=== PATIENT | female | born 1980 | race Caucasian/White ===

== ENCOUNTER 2018-06-19 14:31 | Outpatient (REF) | payer OTHER, SELFPAY ==
[2018-06-19 15:00] LABS: Anion Gap 12.6 mmol/L (3-11); BUN 19 mg/dL (7-18); CO2 23.4 mmol/L (21.0-32.0); CREATININE 1.19 mg/dL (0.55-1.02); Calcium 9.4 mg/dL (8.5-10.1); Chloride 96 mmol/L (98-107); Estimated GFR 50.76 (mL/min/1.73m2); Glucose 417 mg/dL (70-100); Potassium 4.5 mmol/L (3.5-5.1); Sodium 132 mmol/L (136-145); TSH (W/Ref FT4) 1.83 uIU/mL (0.358-3.74); Vitamin B12 624 pg/mL (193-986)
== END 2018-06-19 14:51 ==
LOC: NCHCN 14:31
PROVIDERS: Nurse Practitioner Family; PCP General Practice; Visit Provider Nurse Practitioner Family
DX: E11.65 Type 2 diabetes mellitus with hyperglycemia (principal); F41.8 Other specified anxiety disorders; F43.10 Post-traumatic stress disorder, unspecified; F15.20 Other stimulant dependence, uncomplicated; G47.20 Circadian rhythm sleep disorder, unspecified type; Z62.811 Personal history of psychological abuse in childhood; E66.9 Obesity, unspecified
CPT/HCPCS: 80048; 82607; 84443

== ENCOUNTER 2018-09-26 11:37 | Day surgery (SDC) | payer OTHER, SELFPAY ==
[2018-09-26] VITALS (11 sets, daily range): BP systolic 94–137; BP diastolic 44–77; PULSE 70–95; RESP 10–18; TEMP 36.6–37.3; O2SAT 92–95
--- NOTE | 2018-09-26 11:50 | W.ED.GENAD ---
Discharge Plan Disposition Patient Disposition: [facility] INPATIENT Condition: Fair Discharge Details Chief Complaint: Cellulitis Clinical Impression: Hidradenitis suppurativa, Abscess of left axilla Attending Provider: Luda Long Primary Care Provider: Chica Morris ED Provider: Karis Gold Discharge Data Discharge Date/Time-TO BE ENTERED AT DEPARTURE: 09/26/18 13:52 Medical Decision Making Patient is a 37-year-old female presents today with chief complaint of s left axillary pain. She reports that for the past 2 weeks she has had swelling. States that she has had multiple abscesses in her bilateral axilla historically. However, typically she is able to manage his at home and she reports that this at this point is continued to grow in size. She denies any fevers but states that she has had occasional chills. Does not exhibit signs of systemic illness. Patient is diabetic and reports that her glucose has been running high recently. States that she has been in the low to high 200s consistently. Attributes this to not exercising as much recently. On exam, she has a large, loculated abscess. I did visualize this with ultrasound as well. She has separate areas on the skin of erythema. In total, I am estimating the size for approximately 11 cm x 15 cm. Will consult with general surgery Consulted with Dr. Long who evaluated the patient. She advised that surgical intervention is appropriate. Labs ordered, beginning hydration. She has been NPO. WBC 19. Glucose 258. Patietn transported to OR. IV abx as ordered by Dr. Long. HPI General Mode of arrival: ambulatory. Date/Time Provider Initiated Documentation: 09/26/18 11:49. Limitations to Documentation: no limitations. Information obtained by: patient and RN notes reviewed. History of Present Illness 37 year old F presents to the emergency department with the chief complaint of pain/swelling left axilla, described as mild, with intensity rated at 2. Quality is described as aching, and is localized to the left and upper extremity. Patient reports no radiation. Patient started experiencing this week(s) (2) and it has been constant (progressively worsneing). No relieving factors improve symptom(s), No exacerbating factors reported . Patient notes no other symptoms.. Patient did receive the following treatments prior to arrival, none Related Data Home Medications Medication Instructions Recorded Confirmed insulin glargine [Lantus Solostar 20 unit SUBCUT DAILY 09/26/18 09/26/18 U-100 Insulin] lamotrigine 100 mg PO DAILY 09/26/18 09/26/18 levomefolate-algal oil [Deplin 1 cap PO DAILY 09/26/18 09/26/18 (algal oil)] losartan 12.5 mg PO DAILY 09/26/18 09/26/18 vilazodone [Viibryd] 40 mg PO DAILY 09/26/18 09/26/18 Allergies Allergy/AdvReac Type Severity Reaction Status Date / Time No Known Allergies Allergy Verified 09/26/18 14:00 General Stated Complaint: Cellulitis THERON: 4 Review of Systems Constitutional Reports as per HPI, Denies chills and Denies fever(s) Musculoskeletal Reports as per HPI Integumentary/Breasts Reports as per HPI Neurologic Reports as per HPI, Denies sensory deficit and Denies paresthesias PFSH Medical History [place] teeth extracted (Acute) Depression (Chronic) Diabetes (Chronic) Surgical History History of surgical removal of pilonidal cyst (Acute) Social History Smoking/Tobacco Use Status: Current every day Tobacco Type: cigarettes Alcohol Intake: current Alcohol Intake frequency: holidays/special occasions only Alcohol type: beer Substance use type: does not use Do you feel safe at home: Yes Do you feel safe in your relationship?: Yes Exam Const General: cooperative, healthy appearing, comfortable, no acute distress and well developed Nutritional Appearance: average body habitus and well nourished Orientation: alert and awake Resp Effort & Inspection: normal respiratory effort, able to speak in complete sentences and no respiratory distress Cardio Rate: regular rate Rhythm: regular rhythm Skin General skin exam: erythema, fluctuance and induration Neuro General: alert and awake Cognition: normal cognition Speech: speech normal Gait: normal gait Sensory Exam: no sensory deficits noted Extrem Right upper extremity: full ROM and normal capillary refill; abnormal to inspection (axillary exam concerning for above) Psych Appearance: grossly normal and well kempt Mental Status: mental status grossly normal Speech and Movement: speech and movement normal Course Vital Signs Temperature 36.8 C 09/26/18 11:41 Pulse 94 H 09/26/18 11:41 Respiratory Rate 16 09/26/18 11:41 Blood Pressure 137/77 09/26/18 11:41 Pulse Oximetry 95 09/26/18 11:41 Temperature 36.8 C 09/26/18 11:41 Temperature Source Skin 09/26/18 11:41 Pulse 94 H 09/26/18 11:41 Respiratory Rate 16 09/26/18 11:41 Blood Pressure 137/77 09/26/18 11:41 Blood Pressure Position Sitting 09/26/18 11:41 Pulse Oximetry 95 09/26/18 11:41 Oxygen Delivery Method Room Air 09/26/18 11:41 Oxygen Flow Rate 0 09/26/18 11:41
--- NOTE | 2018-09-26 12:03 | ED.GENADUL_ITS ---
Discharge Plan Disposition Patient Disposition: [facility] INPATIENT Condition: Fair Discharge Details Chief Complaint: Cellulitis Clinical Impression: Hidradenitis suppurativa, Abscess of left axilla Attending Provider: Luda Long Primary Care Provider: Chica Morris ED Provider: Karis Gold Discharge Data Discharge Date/Time-TO BE ENTERED AT DEPARTURE: 09/26/18 13:52 Medical Decision Making Patient is a 37-year-old female presents today with chief complaint of s left axillary pain. She reports that for the past 2 weeks she has had swelling. States that she has had multiple abscesses in her bilateral axilla historically. However, typically she is able to manage his at home and she reports that this at this point is continued to grow in size. She denies any fevers but states that she has had occasional chills. Does not exhibit signs of systemic illness. Patient is diabetic and reports that her glucose has been running high recently. States that she has been in the low to high 200s consistently. Attributes this to not exercising as much recently. On exam, she has a large, loculated abscess. I did visualize this with ultrasound as well. She has separate areas on the skin of erythema. In total, I am estimating the size for approximately 11 cm x 15 cm. Will consult with general surgery Consulted with Dr. Long who evaluated the patient. She advised that surgical intervention is appropriate. Labs ordered, beginning hydration. She has been NPO. WBC 19. Glucose 258. Patietn transported to OR. IV abx as ordered by Dr. Long. HPI General Mode of arrival: ambulatory . Date/Time Provider Initiated Documentation: 09/26/18 11:49 . Limitations to Documentation: no limitations . Information obtained by: patient and RN notes reviewed . History of Present Illness 37 year old F presents to the emergency department with the chief complaint of pain/swelling left axilla, described as mild, with intensity rated at 2. Quality is described as aching, and is localized to the left and upper extremity. Patient reports no radiation. Patient started experiencing this week(s) (2) and it has been constant (progressively worsneing). No relieving factors improve symptom(s), No exacerbating factors reported . Patient notes no other symptoms.. Patient did receive the following treatments prior to arrival, none Related Data Home Medications Medication Instructions Recorded Confirmed insulin glargine [Lantus Solostar 20 unit SUBCUT DAILY 09/26/18 09/26/18 U-100 Insulin] lamotrigine 100 mg PO DAILY 09/26/18 09/26/18 levomefolate-algal oil [Deplin 1 cap PO DAILY 09/26/18 09/26/18 (algal oil)] losartan 12.5 mg PO DAILY 09/26/18 09/26/18 vilazodone [Viibryd] 40 mg PO DAILY 09/26/18 09/26/18 Allergies Allergy/AdvReac Type Severity Reaction Status Date / Time No Known Allergies Allergy Verified 09/26/18 14:00 General Stated Complaint: Cellulitis THERON: 4 Review of Systems Constitutional Reports as per HPI, Denies chills and Denies fever(s) Musculoskeletal Reports as per HPI Integumentary/Breasts Reports as per HPI Neurologic Reports as per HPI, Denies sensory deficit and Denies paresthesias PFSH Medical History [place] teeth extracted (Acute) Depression (Chronic) Diabetes (Chronic) Surgical History History of surgical removal of pilonidal cyst (Acute) Social History Smoking/Tobacco Use Status: Current every day Tobacco Type: cigarettes Alcohol Intake: current Alcohol Intake frequency: holidays/special occasions only Alcohol type: beer Substance use type: does not use Do you feel safe at home: Yes Do you feel safe in your relationship?: Yes Exam Const General: cooperative, healthy appearing, comfortable, no acute distress and well developed Nutritional Appearance: average body habitus and well nourished Orientation: alert and awake Resp Effort & Inspection: normal respiratory effort, able to speak in complete sentences and no respiratory distress Cardio Rate: regular rate Rhythm: regular rhythm Skin General skin exam: erythema, fluctuance and induration Neuro General: alert and awake Cognition: normal cognition Speech: speech normal Gait: normal gait Sensory Exam: no sensory deficits noted Extrem Right upper extremity: full ROM and normal capillary refill; abnormal to inspection (axillary exam concerning for above) Psych Appearance: grossly normal and well kempt Mental Status: mental status grossly normal Speech and Movement: speech and movement normal Course Vital Signs Temperature 36.8 C 09/26/18 11:41 Pulse 94 H 09/26/18 11:41 Respiratory Rate 16 09/26/18 11:41 Blood Pressure 137/77 09/26/18 11:41 Pulse Oximetry 95 09/26/18 11:41 Temperature 36.8 C 09/26/18 11:41 Temperature Source Skin 09/26/18 11:41 Pulse 94 H 09/26/18 11:41 Respiratory Rate 16 09/26/18 11:41 Blood Pressure 137/77 09/26/18 11:41 Blood Pressure Position Sitting 09/26/18 11:41 Pulse Oximetry 95 09/26/18 11:41 Oxygen Delivery Method Room Air 09/26/18 11:41 Oxygen Flow Rate 0 09/26/18 11:41
--- NOTE | 2018-09-26 12:47 | W.PM.HP.N ---
Date of service: 09/26/18 Time of Service: 12:47 Assessment and Plan (1) Hidradenitis suppurativa: Current visit: Yes Status: Acute 37 y/o female with h/o hidradenitis suppuritiva. Discussed with her re: skin hygiene - keeping the skin as dry and clean as possible. Discussed with her re: being careful with shavinig to avoid nicks or scrapes to the skin. Consider follow-up with dermatology once the acute infection clears to see if there are other treatment recommendations. (2) Abscess of left axilla: Current visit: Yes Status: Acute 37 y/o female diabetic smoker with multiple, loculated left axillary abscesses. Discussed with patient recommendation to proceed with incision and drainage in the operating room under anesthesia to allow for adequate drainage of loculated pockets. Discussed operative procedure with risks, benefits, and alternatives including but not limited to risks with anesthesia sedation/general anesthesia, bleeding, recurrent infection, scarring, and possible additional procedures. Discussed possible Sharla drain placement and possible multiple incisions for drainage. Discussed that surgery will proceed when cleared with anesthesia as patient just ate an omelet at 1000 this am and will need to be adequately NPO for anesthesia. Clindamycin IV ordered. Will plan discharge on po Clindamycin as well. Labs pending. Plan discharge this evening after surgery. All questions answered. Patient appeared to understand and agree with the discussion as outlined above. She wishes to proceed. Discussed with ADRI Beltran in the ED. See orders. History of Present Illness Chief Complaint: Left axillary abscesses Narrative: 37 y/o female seen with family at the bedside in the ED at [facility]. Patient has a long history of hidradenitis suppuritiva x 20 years, since her late teens. She notes intermittent abscesses in the axillae, under the breasts, and in the groin which have either drained spontaneously or been drained by the patient herself. She also has a history of a pilonidal cyst for which she underwent excision with Dr. Brooke in the past. She notes that her left axilla started to become red, swollen, and painful over the past 2 weeks. It has not drained spontaneously. Bedside ultrasound performed by the ED staff reportedly showed large, loculated abscesses. She has never had a formal surgical drainage. She denies any drug allergies. She is an insulin-dependent diabetic and pack-a-day smoker. She denied fevers at home, but had reported ocassional chills to the ED staff. She also reported that her blood sugars had been running high. Review of Systems Constitutional Reports system reviewed and no additional complaints, except as docu, Reports chills and Denies fever(s) Integumentary/Breasts Reports erythema (left axilla), Reports skin pain (left axilla) and Reports skin swelling (left axilla) [facility] Medical History Depression (Chronic) Diabetes (Chronic) Social History Smoking/Tobacco Use Status: Current every day Alcohol Intake: current Alcohol Intake frequency: holidays/special occasions only Substance use type: does not use Do you feel safe at home: Yes Do you feel safe in your relationship?: Yes Meds Home Medications Medication Instructions Recorded Confirmed Type insulin glargine [Lantus Solostar 20 unit SUBCUT DAILY 09/26/18 09/26/18 History U-100 Insulin] lamotrigine 100 mg PO DAILY 09/26/18 09/26/18 History levomefolate-algal oil [Deplin 1 cap PO DAILY 09/26/18 09/26/18 History (algal oil)] losartan 12.5 mg PO DAILY 09/26/18 09/26/18 History vilazodone [Viibryd] 40 mg PO DAILY 09/26/18 09/26/18 History Allergies Allergy/AdvReac Type Severity Reaction Status Date / Time No Known Allergies Allergy Unverified 05/29/16 16:19 Exam Const General: cooperative, comfortable and well developed Nutritional Appearance: well nourished and overweight Orientation: alert and oriented x3 HENMT Head: normocephalic and atraumatic Eyes Sclera: sclerae normal Resp Effort & Inspection: normal respiratory effort and able to speak in complete sentences Cardio Jugular venous pressure: no JVD Rate: regular rate Rhythm: regular rhythm GI Inspection: non-distended Palpation: not firm, no guarding and nontender Skin General skin exam: erythema and induration Other: right axilla - freely draining scant purulent fluid from sinus opening with induration/scar tissue, no erythema/fluctuance left axilla - tense, fluctuant, loculated pockets of fluid superiorly above and inferiorly below hair bearing area; no expressible drainage; mild tenderness and erythema noted; no crepitus Neuro General: alert and oriented x3 Speech: speech normal Results Labs : 09/26/18 12:50 09/26/18 12:50 Last Vital Signs Temp 36.8 C 09/26/18 11:41 Pulse 94 H 09/26/18 11:41 Resp 16 09/26/18 11:41 BP 137/77 09/26/18 11:41 Pulse Ox 95 09/26/18 11:41
[2018-09-26 12:56] LABS: Abs Immature Grans 0.05 k/cumm (0.0-0.09); Absolute Basophil Count 0.06 k/cumm (0.0-0.2); Absolute Eosinophil Count 0.39 k/cumm (0.0-0.7); Absolute Lymphocyte Count 1.97 k/cumm (1.2-3.4); Basophils % 0.3; HCT 42.7 % (36.0-46.0); HGB 14.8 g/dL (12.0-15.5); Immature Grans % 0.3; Lymphocytes % 10.2; Mean Corp. HGB Concentration 34.7 g/dL (32.0-36.0); Mean Corpuscular Hemoglobin 30.8 pg (27.0-33.0); Mean Platelet Volume 10.2 fL (8.0-11.0); Monocytes % 5.1; Neutrophils % 82.1; Platelet Count 281 x1000/uL (130-400); RBC Distribution Width 13.3 % (11.7-14.6); White Blood Cell Count 19.36 k/cumm (4.4-10.8)
[2018-09-26 12:57] LABS: Absolute Monocyte Count 0.99 k/cumm (0.11-0.7); Absolute Neutrophil Count 15.89 k/cumm (1.2-6.7)
[2018-09-26] MEDS: Lactated Ringers 1,000 ML 75 ML IV ×2 (13:00→15:22)
[2018-09-26 13:20] LABS: ALT 38 U/L (12-78); AST 29 U/L (15-37); Albumin 3.4 g/dL (3.4-5.0); Alkaline Phosphatase 115 U/L (46-116); Anion Gap 10.4 mmol/L (3-11); BUN 17 mg/dL (7-18); Bilirubin, Total 0.4 mg/dL (0.2-1.0); CO2 27.6 mmol/L (21.0-32.0); CREATININE 0.89 mg/dL (0.55-1.02); Calcium 8.9 mg/dL (8.5-10.1); Chloride 99 mmol/L (98-107); Glucose 258 mg/dL (70-100); Potassium 3.9 mmol/L (3.5-5.1); Sodium 137 mmol/L (136-145); Total Protein 7.4 g/dL (6.4-8.2)
[2018-09-26] MEDS: CLINDAMYCIN 300 MG/50 ML BAG 100 MG IVPB (13:44)
[2018-09-26] MEDS: Bupivacaine 0.25% Pres-Free 30 ML VIAL (17:19)
--- NOTE | 2018-09-26 17:45 | W.PM.OP ---
Date of service: 09/26/18 Time of Service: 17:45 Operative Note DATE OF PROCEDURE: 09/26/18 PRE-OP DIAGNOSIS: Left axillary abscesses, Hidradenitis suppuritiva POST-OP DIAGNOSIS: same PROCEDURE: Incision and drainage left axillary abscess SURGEON: Luda Long ANESTHESIA: other (General with LMA) ESTIMATED BLOOD LOSS: 2 PATHOLOGY: none sent COMPLICATIONS: None Patient was transported to: PACU Patient's condition: stable Indications: 37 y/o female with a h/o hidradenitis suppuritiva who presents with left axillary abscesses. She presents at this time for incision and drainage. Operative procedure including risks, benefits, and alternatives had been discussed with the patient and informed consent obtained prior to surgery. Findings: Large loculated abscess cavity extending across axilla, approximately 8 cm in diameter. Abscess cavity swabbed for aerobic and anaerobic cultures. Procedure Description: Patient was brought to the operating room and placed on the table in the supine position. Patient was placed under general anesthesia with an LMA. Left extremity was extended to expose the left axilla. Skin noted to be intact. Skin prepped with chloraprep and sterilely draped in the usual fashion. Time out performed per protocol. Patient had received a dose of Clindamycin in the ED. Incision made over fluctuant area in the superior aspect of the axilla just above the hair bearing area. A large amount of cream-colored pus under pressure was noted to drain. This was swabbed and sent for aerobic and anaerobic cultures. The cavity was then probed with the suction tip. Loculations were noted and gently broken up. The cavity was noted to extend across the axilla to just below the hair bearing area for a diameter of ~ 8 cm. A counter incision was made just below the hair bearing area. The cavity was then copiously irrigated with saline until the effluent was clear. Good hemostasis noted. A quarter inch Sharla drain was then inserted into each incision and the skin reapproximated against the drains with 3-0 nylon suture. Dry dressing applied. Patient tolerated surgery well, was awakened from anesthesia, and transferred to recovery in satisfactory condition. Findings reviewed with patient's mother postoperatively.
--- NOTE | 2018-09-26 18:07 | DSE_ITS ---
DS: Diagnosis Discharge Diagnosis (1) Hidradenitis suppurativa: Status: Acute (2) Abscess of left axilla: Status: Acute Discharge Plan Disposition Patient Disposition: HOME Condition: Good Discharge Details Chief Complaint: Cellulitis Attending Provider: Luda Long Primary Care Provider: Chica Morris ED Provider: Karis Gold Home Meds and New Rx's Prescriptions: New clindamycin HCl 300 mg capsule 300 mg PO Q6H Qty: 28 RF: 0 Continued losartan 25 mg Tablet 12.5 mg PO DAILY RF: 0 Lantus Solostar U-100 Insulin 100 unit/mL (3 mL) Insulin Pen 20 unit subcut DAILY RF: 0 lamotrigine 100 mg Tablet Extended Release 24hr 100 mg PO DAILY RF: 0 Viibryd 40 mg Tablet 40 mg PO DAILY RF: 0 levomefolate-algal oil [Deplin (algal oil)] 15-90.314 mg Capsule 1 cap PO DAILY RF: 0 Discharge Instructions Instructions: Abscess Incision and Drainage (DC) Additional Instructions: May remove dressing to shower in am (09/27/18). OK to get drains wet. Cover with dry gauze or bandaid. Change daily and as needed. May use heating pad or ice as needed for comfort. May use over the counter pain medication as directed if needed. May resume exercise and normal activity as tolerated. Referrals: Camryn Valentine MD [ [facility] STAFF PHYSICIAN] - (Follow-up in 1 week for drain removal. Please call office on Saturday to schedule appointment.) Activity:: Activity as Tolerated Diet:: As Tolerated Discharge Orders Discharge Orders: Discharge Order (Routine); Ordered 09/26/18 Ordered By: Luda Long Exam Const General: cooperative, comfortable and no acute distress Orientation: alert Resp Effort & Inspection: normal respiratory effort and able to speak in complete sentences Cardio Jugular venous pressure: no JVD Rate: regular rate Rhythm: regular rhythm Skin General skin exam: other (Erythema resolved s/p I&D. Left axillary dressing intact.) DS: Data Vitals/I&O Vitals and I&O: Vital Signs Temperature 37.2 C 09/26/18 18:01 Temperature Source Skin 09/26/18 13:54 Pulse 82 09/26/18 18:01 Respiratory Rate 12 09/26/18 18:01 Respiratory Effort Non-Labored 09/26/18 11:49 Blood Pressure 96/44 L 09/26/18 18:01 Blood Pressure Position Sitting 09/26/18 11:41 Pulse Oximetry 92 L 09/26/18 18:01 Respiratory End-tidal CO2 39 09/26/18 18:01 Oxygen Delivery Method Room Air 09/26/18 18:01 Oxygen Flow Rate 0 09/26/18 18:01 Pain Level 0 09/26/18 18:01 Intake & Output 09/25/18 09/26/18 09/26/18 23:59 11:59 23:59 Intake Total 987.5 / 987.5 Balance 987.5 / 987.5 Weight 104.326 kg 104.326 kg Intake: IV 977.5 / 977.5 Oral Other: Emesis Description None Labs on day of discharge: Labs from last 24 hours 09/26/18 09/26/18 12:50 12:50 WBC 19.36 H RBC 4.80 Hgb 14.8 Hct 42.7 MCV 89.0 MCH 30.8 MCHC 34.7 RDW 13.3 Plt Count 281 MPV 10.2 Immature Gran % 0.3 Neutrophils % 82.1 Lymphocytes % 10.2 Monocytes % 5.1 Eosinophils % 2.0 Basophils % 0.3 Absolute Neutrophils 15.89 H Absolute Lymphocytes 1.97 Absolute Monocytes 0.99 H Absolute Eosinophils 0.39 Absolute Basophils 0.06 Sodium 137 Potassium 3.9 Chloride 99 Carbon Dioxide 27.6 Anion Gap 10.4 BUN 17 Creatinine 0.89 Estimated GFR/1.73 m2 >= 60.00 Glucose 258 H Calcium 8.9 Total Bilirubin 0.4 AST 29 ALT 38 Alkaline Phosphatase 115 Total Protein 7.4 Albumin 3.4 09/26/18 17:20 Arm - Left Anaerobic Culture - Pending 09/26/18 17:20 Arm - Left Lower Surgical Culture - Pending 09/26/18 17:20 Arm - Left Lower Gram Stain - Pending Preliminary micro results at discharge 09/26/18 17:20 Anaerobic Culture - Pending Arm - Left 09/26/18 17:20 Surgical Culture - Pending Arm - Left Lower Gram Stain - Pending [facility] Medical History [place] teeth extracted (Acute) Depression (Chronic) Diabetes (Chronic) Surgical History History of surgical removal of pilonidal cyst (Acute) Social History Smoking/Tobacco Use Status: Current every day Tobacco Type: cigarettes Alcohol Intake: current Alcohol Intake frequency: holidays/special occasions only Alcohol type: beer Substance use type: does not use Do you feel safe at home: Yes Do you feel safe in your relationship?: Yes
--- NOTE | 2018-09-27 10:32 | PGE_ITS ---
Date of Service Date of service: 09/27/18 Time of Service: 10:29 Subjective Interval history since last seen: Patient called this am, noting some redness in her groin area, cleft, and hands after first po dose of Clindamycin last night. Took 2nd po dose this am around 0730 and noted worsening redness and tightness in her hands. Denies any redness on her chest, throat swelling, or problems breathing/swallowing. Wound cultures still pending. Gram stain showed moderate WBCs and moderate gram positive cocci. Patient instructed to d/c po Clindamycin. New prescription for Bactrim DS 1 po twice a day x 7 days called in to [place] pharmacy for patient. Patient does not recall having taken Bactrim before and denies any known sulfa allergy. Patient denied any other complaints and verbalized understanding of above discussion. Objective Objective Clinical Data: Abnormal lab results 09/26/18 09/26/18 Range/Units 12:50 12:50 WBC 19.36 H (4.4-10.8) k/cumm Absolute Neutrophils 15.89 H (1.2-6.7) k/cumm Absolute Monocytes 0.99 H (0.11-0.7) k/cumm Glucose 258 H (70-100) mg/dL Vital Signs Temperature 37 C 09/26/18 18:54 Temperature Source Skin 09/26/18 13:54 Pulse 86 09/26/18 18:54 Respiratory Rate 18 09/26/18 18:54 Respiratory Effort Non-Labored 09/26/18 11:49 Blood Pressure 94/45 L 09/26/18 18:54 Blood Pressure Position Sitting 09/26/18 11:41 Pulse Oximetry 94 L 09/26/18 18:54 Respiratory End-tidal CO2 33 09/26/18 18:24 Oxygen Delivery Method Room Air 09/26/18 18:54 Oxygen Flow Rate 0 09/26/18 18:24 Pain Level 1 09/26/18 18:54 Intake & Output 09/26/18 09/26/18 09/27/18 11:59 23:59 11:59 Intake Total 1757.5 / 1757.5 Balance 1757.5 / 1757.5 Weight 104.326 kg 104.326 kg Intake: IV 1127.5 / 1127.5 Oral 630 / 630 Other: Emesis Description None Laboratory Results WBC 19.36 k/cumm (4.4-10.8) H 09/26/18 12:50 RBC 4.80 m/cumm (4.00-5.20) 09/26/18 12:50 Hgb 14.8 g/dL (12.0-15.5) 09/26/18 12:50 Hct 42.7 % (36.0-46.0) 09/26/18 12:50 MCV 89.0 fL (80-95) 09/26/18 12:50 MCH 30.8 pg (27.0-33.0) 09/26/18 12:50 MCHC 34.7 g/dL (32.0-36.0) 09/26/18 12:50 RDW 13.3 % (11.7-14.6) 09/26/18 12:50 Plt Count 281 x1000/uL (130-400) 09/26/18 12:50 MPV 10.2 fL (8.0-11.0) 09/26/18 12:50 Immature Gran % 0.3 09/26/18 12:50 Neutrophils % 82.1 09/26/18 12:50 Lymphocytes % 10.2 09/26/18 12:50 Monocytes % 5.1 09/26/18 12:50 Eosinophils % 2.0 09/26/18 12:50 Basophils % 0.3 09/26/18 12:50 Absolute Neutrophils 15.89 k/cumm (1.2-6.7) H 09/26/18 12:50 Absolute Lymphocytes 1.97 k/cumm (1.2-3.4) 09/26/18 12:50 Absolute Monocytes 0.99 k/cumm (0.11-0.7) H 09/26/18 12:50 Absolute Eosinophils 0.39 k/cumm (0.0-0.7) 09/26/18 12:50 Absolute Basophils 0.06 k/cumm (0.0-0.2) 09/26/18 12:50 Sodium 137 mmol/L (136-145) 09/26/18 12:50 Potassium 3.9 mmol/L (3.5-5.1) 09/26/18 12:50 Chloride 99 mmol/L (98-107) 09/26/18 12:50 Carbon Dioxide 27.6 mmol/L (21.0-32.0) 09/26/18 12:50 Anion Gap 10.4 mmol/L (3-11) 09/26/18 12:50 BUN 17 mg/dL (7-18) 09/26/18 12:50 Creatinine 0.89 mg/dL (0.55-1.02) 09/26/18 12:50 Estimated GFR/1.73 m2 >= 60.00 (mL/min/1.73m2) 09/26/18 12:50 Glucose 258 mg/dL (70-100) H 09/26/18 12:50 Calcium 8.9 mg/dL (8.5-10.1) 09/26/18 12:50 Total Bilirubin 0.4 mg/dL (0.2-1.0) 09/26/18 12:50 AST 29 U/L (15-37) 09/26/18 12:50 ALT 38 U/L (12-78) 09/26/18 12:50 Alkaline Phosphatase 115 U/L (46-116) 09/26/18 12:50 Total Protein 7.4 g/dL (6.4-8.2) 09/26/18 12:50 Albumin 3.4 g/dL (3.4-5.0) 09/26/18 12:50
== END 2018-09-26 19:37 | disposition home or self-care (01) ==
LOC: ER 13:01 → SUR 13:19 → ER 13:49 → SUR 13:50
PROVIDERS: Emergency Provider Physician Assistant; PCP Nurse Practitioner Family; Visit Provider Surgery
PROC: (CPT 10061; principal; 2018-09-26 17:00)
DX: L73.2 Hidradenitis suppurativa (principal); L02.412 Cutaneous abscess of left axilla; B95.7 Other staphylococcus as the cause of diseases classified elsewhere
CPT/HCPCS: 10061; 36415; 80053; 87077; 96360; 99222; 99285; NC; 85025; 87070; 87075; 87186; 87205; 99284; J2405; J3010

== ENCOUNTER 2018-10-02 12:04 | Outpatient (REF) | payer OTHER, SELFPAY ==
[2018-10-02 22:32] LABS: Calculated LDL 124 mg/dL; Cholesterol 181 mg/dL (50-200); HDL Cholesterol 33 mg/dL (40-60); TSH (W/Ref FT4) 1.37 uIU/mL (0.358-3.74); Triglyceride 121 mg/dL (30-150)
[2018-10-06 10:33] LABS: HIV-1/2 Ag & Ab Screen Negative (NEGAT)
[2018-10-06 11:41] LABS: Syphilis Serology (RPR) Negative (Negative)
== END 2018-10-02 12:24 ==
LOC: NCHCN 12:04
PROVIDERS: PCP Nurse Practitioner Family; Visit Provider Nurse Practitioner Family
DX: Z00.00 Encounter for general adult medical examination without abnormal findings (principal); E11.65 Type 2 diabetes mellitus with hyperglycemia; F41.8 Other specified anxiety disorders; Z11.4 Encounter for screening for human immunodeficiency virus [HIV]; E66.9 Obesity, unspecified; F17.200 Nicotine dependence, unspecified, uncomplicated; L73.2 Hidradenitis suppurativa; N91.2 Amenorrhea, unspecified
CPT/HCPCS: 80061; 83721; 87389; 84443; 86592

== ENCOUNTER 2018-10-03 16:25 | Outpatient (REF) | payer OTHER, SELFPAY ==
[2018-10-06 14:29] LABS: Chlamydia Result Negative; GC Result Negative; Specimen Description URINE
== END 2018-10-03 16:45 ==
LOC: NCHCN 16:25
PROVIDERS: PCP Nurse Practitioner Family; Visit Provider Nurse Practitioner Family
DX: N91.2 Amenorrhea, unspecified (principal); N39.3 Stress incontinence (female) (male)
CPT/HCPCS: 87491; 87591

== ENCOUNTER 2018-10-06 01:13 | Outpatient (CLI) | payer OTHER, SELFPAY ==
--- NOTE | 2018-10-06 10:00 | DI.US_ITS ---
SYMPTOM/DIAGNOSIS: AMENORRHEA, N91.2 PELVIC ULTRASOUND: Transabdominal and transvaginal images were performed. The uterus measures 6 by 2.8 by 4 cm. Transabdominal images are limited by lack of bladder distension and patient body habitus. The uterus measures 6 by 2.8 by 4 cm. The endometrial stripe measures 2 mm. in thickness. The ovaries were unable to be identified. There is no evidence of free fluid or hydronephrosis. No fibroids are seen. IMPRESSION: Thin endometrium measuring 2 mm. Non visualization of the ovaries.
== END 2018-10-06 01:33 ==
PROVIDERS: PCP Nurse Practitioner Family; Visit Provider Nurse Practitioner Family
DX: N91.2 Amenorrhea, unspecified (principal)
CPT/HCPCS: 76830; 76856

== ENCOUNTER 2018-10-10 15:16 | Outpatient (CLI) | payer OTHER, SELFPAY ==
[2018-10-13 11:13] LABS: FSH 16.2 mIU/ml; Prolactin 10.1 ng/ml
== END 2018-10-10 15:36 ==
PROVIDERS: PCP Nurse Practitioner Family; Visit Provider Nurse Practitioner Family
DX: N64.3 Galactorrhea not associated with childbirth; N91.2 Amenorrhea, unspecified
CPT/HCPCS: 36415; 83001; 84146

== ENCOUNTER 2018-10-10 16:16 | Outpatient (REF) | payer OTHER, SELFPAY ==
--- NOTE | 2018-10-10 14:55 | PAPFT_PTH ---
PATIENT: Deanna Kraft LOC: [facility] U#:[id number] AGE/SX: 37/F ROOM: RE10/10/[address]: GUILLERMO Noland : 1980 BED: DIS: 10/10/2018 SPEC #: [id number] RECD: 10/13/18 12:50 STATUS: IVETTE RECornell #: [id number] REA: 10/10/18 14:[address]: Poonam Cade DEPT: [facility] Cytology RECD BY: Mahogany Moyer ENTERED: 10/13/18 12:50 SP TYPE: PAPFT JANE DR: Chica Morris Tissues: 1 - CX/ENDOCX FOR PAP SMEARS Procedures: PAP THIN PREP/UVM Screening HPV DNA PROBE Comments: [id number]
== END 2018-10-10 16:36 ==
LOC: LBN 16:16
PROVIDERS: PCP Nurse Practitioner Family; Visit Provider Nurse Practitioner Family
DX: Z12.4 Encounter for screening for malignant neoplasm of cervix (principal); Z11.51 Encounter for screening for human papillomavirus (HPV)
CPT/HCPCS: 88142; 87624

== ENCOUNTER 2019-09-22 12:12 | Outpatient (REF) | payer MEDICAID, OTHER, SELFPAY ==
[2019-09-22 22:16] LABS: ALT 58 U/L (14-59); AST 69 U/L (15-37); Albumin 4.3 g/dL (3.4-5.0); Alkaline Phosphatase 107 U/L (46-116); Anion Gap 11.5 mmol/L (3-11); BUN 25 mg/dL (7-18); Bilirubin, Total 0.2 mg/dL (0.2-1.0); CO2 23.5 mmol/L (21.0-32.0); CREATININE 1.21 mg/dL (0.55-1.02); Calcium 9.4 mg/dL (8.5-10.1); Calculated LDL 148 mg/dL (<100); Chloride 102 mmol/L (98-107); Cholesterol 209 mg/dL (<200); Estimated GFR 49.54 (mL/min/1.73m2); Glucose 142 mg/dL (74-106); HDL Cholesterol 41 mg/dL (40-60); Potassium 4.6 mmol/L (3.5-5.1); Sodium 137 mmol/L (136-145); Total Protein 7.6 g/dL (6.4-8.2); Triglyceride 100 mg/dL (<150)
[2019-09-24 10:03] LABS: HIV-1/2 Ag & Ab Screen Negative (Negative)
[2019-09-24 10:10] LABS: Hepatitis C Ab w Rflx HCV PCR Negative (Negative)
== END 2019-09-22 12:32 ==
LOC: NCHCN 12:12
PROVIDERS: PCP Nurse Practitioner Family; Visit Provider Nurse Practitioner Family
DX: E11.65 Type 2 diabetes mellitus with hyperglycemia (principal); F41.8 Other specified anxiety disorders; N39.3 Stress incontinence (female) (male); L73.2 Hidradenitis suppurativa; R20.2 Paresthesia of skin; K30 Functional dyspepsia; E66.9 Obesity, unspecified; Z11.4 Encounter for screening for human immunodeficiency virus [HIV]; Z11.59 Encounter for screening for other viral diseases
CPT/HCPCS: 80053; 80061; 86803; 87389

== ENCOUNTER 2020-06-20 19:36 | Outpatient (REF) | payer MEDICAID, SELFPAY ==
[2020-06-20 21:46] LABS: ALT 28 U/L (14-59); AST 24 U/L (15-37); Albumin 3.8 g/dL (3.4-5.0); Alkaline Phosphatase 124 U/L (46-116); Anion Gap 12.3 mmol/L (3-11); BUN 17 mg/dL (7-18); Bilirubin, Total 0.3 mg/dL (0.2-1.0); CO2 24.7 mmol/L (21.0-32.0); CREATININE 1.1 mg/dL (0.55-1.02); Calcium 9.5 mg/dL (8.5-10.1); Chloride 97 mmol/L (98-107); Estimated GFR 55.01 (mL/min/1.73m2); Glucose 315 mg/dL (74-106); Potassium 4.6 mmol/L (3.5-5.1); Sodium 134 mmol/L (136-145); Total Protein 7.8 g/dL (6.4-8.2)
[2020-06-22 11:15] LABS: Hepatitis A Antibody IgM Negative (Negative); Hepatitis B Core Antibody Negative (Negative); Hepatitis B surface Ag Negative (Negative); Hepatitis C Ab w Rflx HCV PCR Negative (Negative)
== END 2020-06-20 19:37 | disposition home or self-care (01) ==
LOC: NCHCN 19:36
PROVIDERS: PCP Nurse Practitioner Family; Visit Provider Nurse Practitioner Family
DX: E11.65 Type 2 diabetes mellitus with hyperglycemia (principal); F41.8 Other specified anxiety disorders; R74.01 Elevation of levels of liver transaminase levels; R42 Dizziness and giddiness; E66.9 Obesity, unspecified; Z11.59 Encounter for screening for other viral diseases
CPT/HCPCS: 80053; 86704; 86709; 86803; 87340

== ENCOUNTER 2020-07-06 09:42 | Outpatient (REF) | payer MEDICAID, SELFPAY ==
[2020-07-06 13:33] LABS: Anion Gap 9.7 mmol/L (3-11); BUN 15 mg/dL (7-18); CO2 25.3 mmol/L (21.0-32.0); CREATININE 1.1 mg/dL (0.55-1.02); Calcium 9.5 mg/dL (8.5-10.1); Chloride 101 mmol/L (98-107); Estimated GFR 55.01 (mL/min/1.73m2); Glucose 221 mg/dL (74-106); Potassium 4.6 mmol/L (3.5-5.1); Sodium 136 mmol/L (136-145)
== END 2020-07-06 09:43 | disposition home or self-care (01) ==
LOC: NCHCN 09:42
PROVIDERS: PCP Nurse Practitioner Family; Visit Provider Nurse Practitioner Family
DX: E11.65 Type 2 diabetes mellitus with hyperglycemia (principal); R74.01 Elevation of levels of liver transaminase levels; E66.9 Obesity, unspecified
CPT/HCPCS: 80048

== ENCOUNTER 2020-10-11 16:45 | Outpatient (REF) | payer MEDICAID, SELFPAY ==
[2020-10-11 20:59] LABS: ALT 31 U/L (14-59); AST 44 U/L (15-37); Albumin 3.9 g/dL (3.4-5.0); Alkaline Phosphatase 81 U/L (46-116); Anion Gap 12.5 mmol/L (3-11); BUN 17 mg/dL (7-18); Bilirubin, Total 0.3 mg/dL (0.2-1.0); CO2 23.5 mmol/L (21.0-32.0); CREATININE 1.3 mg/dL (0.55-1.02); Calcium 9.6 mg/dL (8.5-10.1); Chloride 103 mmol/L (98-107); Estimated GFR 45.37 (mL/min/1.73m2); Glucose 98 mg/dL (74-106); Potassium 4.4 mmol/L (3.5-5.1); Sodium 139 mmol/L (136-145); Total Protein 7.4 g/dL (6.4-8.2)
[2020-10-11 21:09] LABS: GGT 29 U/L (5-55)
[2020-10-11 21:51] LABS: Vitamin D 25 Total 10.5 ng/mL (30-100)
== END 2020-10-11 16:46 | disposition home or self-care (01) ==
LOC: NCHCN 16:45
PROVIDERS: PCP Nurse Practitioner Family; Visit Provider Nurse Practitioner Family
DX: R74.8 Abnormal levels of other serum enzymes (principal); K59.00 Constipation, unspecified; R20.2 Paresthesia of skin; L73.2 Hidradenitis suppurativa; N93.9 Abnormal uterine and vaginal bleeding, unspecified; E11.9 Type 2 diabetes mellitus without complications; E66.9 Obesity, unspecified; F17.200 Nicotine dependence, unspecified, uncomplicated
CPT/HCPCS: 80053; 82306; 82977

== ENCOUNTER 2021-04-27 18:15 | Outpatient (REF) | payer MEDICAID, SELFPAY ==
[2021-04-27 14:37] LABS: Abs Immature Grans 0.03 10^3/uL (0.0-0.06); Absolute Eosinophil Count 0.33 10^3/uL (0.0-0.7); Absolute Lymphocyte Count 2.17 10^3/uL (1.2-3.4); Absolute Monocyte Count 0.43 10^3/uL (0.1-0.8); Absolute Neutrophil Count 7.19 10^3/uL (1.2-6.7); Eosinophils % 3.2; HCT 40.8 % (36.0-46.0); HGB 13.9 g/dL (11.2-15.7); Immature Grans % 0.3; Lymphocytes % 21.2; MCH 31.4 pg (27.0-33.0); MCHC 34.1 % (32.0-36.0); MCV 92.1 fL (80-95); MPV 11.9 fL (8.0-11.0); Monocytes % 4.2; Neutrophils % 70.1; Nucleated RBC 0 %; Platelet Count 252 10^3/uL (130-400); RBC 4.43 10^6/uL (3.93-5.22); RDW 12.9 % (11.7-14.6); RDW-SD 43.5 fL; WBC 10.25 10^3/uL (4.4-10.8)
[2021-04-27 15:10] LABS: Iron 68 ug/dL (50-170); Total Iron Binding Capacity 274 ug/dL (250-450); Transferrin Sat 25 % (15-50)
[2021-04-27 15:27] LABS: ALT 28 U/L (14-59); AST 31 U/L (15-37); Albumin 4.1 g/dL (3.4-5.0); Alkaline Phosphatase 77 U/L (46-116); Anion Gap 8.7 mmol/L (3-11); BUN 15 mg/dL (7-18); Bilirubin, Total 0.3 mg/dL (0.2-1.0); CO2 26.3 mmol/L (21.0-32.0); CREATININE 1.1 mg/dL (0.55-1.02); Calcium 9.4 mg/dL (8.5-10.1); Chloride 102 mmol/L (98-107); Estimated GFR 54.74 (mL/min/1.73m2); Ferritin 161 ng/mL (8-252); Glucose 112 mg/dL (74-106); Potassium 4.3 mmol/L (3.5-5.1); Sodium 137 mmol/L (136-145); TSH (W/Ref FT4) 2.87 uIU/mL (0.36-3.74); Total Protein 7.5 g/dL (6.4-8.2)
[2021-04-27 15:33] LABS: Vitamin D 25 Total 24.1 ng/mL (30-100)
== END 2021-04-27 18:16 | disposition home or self-care (01) ==
LOC: NCHCN 18:15
PROVIDERS: PCP Nurse Practitioner Family; Visit Provider Nurse Practitioner Family
DX: E11.65 Type 2 diabetes mellitus with hyperglycemia (principal); E11.40 Type 2 diabetes mellitus with diabetic neuropathy, unspecified; N28.9 Disorder of kidney and ureter, unspecified; E55.9 Vitamin D deficiency, unspecified; R74.8 Abnormal levels of other serum enzymes; R74.01 Elevation of levels of liver transaminase levels; L65.9 Nonscarring hair loss, unspecified
CPT/HCPCS: 80053; 82306; 82728; 83540; 83550; 84443; 85025

== ENCOUNTER 2021-10-26 15:14 | Outpatient (REF) | payer MEDICAID, SELFPAY ==
[2021-10-26 16:16] LABS: Anion Gap 11.9 mmol/L (3-11); BUN 17 mg/dL (7-18); CO2 23.1 mmol/L (21.0-32.0); CREATININE 1.2 mg/dL (0.55-1.02); Calcium 9.3 mg/dL (8.5-10.1); Calculated LDL 113 mg/dL (<100); Chloride 103 mmol/L (98-107); Cholesterol 173 mg/dL (<200); Estimated GFR 49.51 (mL/min/1.73m2); Glucose 113 mg/dL (74-106); HDL Cholesterol 42 mg/dL (40-60); Potassium 4.1 mmol/L (3.5-5.1); Sodium 138 mmol/L (136-145); Triglyceride 93 mg/dL (<150)
== END 2021-10-26 15:15 | disposition home or self-care (01) ==
LOC: NCHCN 15:14
PROVIDERS: PCP Nurse Practitioner Family; Visit Provider Nurse Practitioner Family
DX: E11.65 Type 2 diabetes mellitus with hyperglycemia (principal); E55.9 Vitamin D deficiency, unspecified; R42 Dizziness and giddiness; K59.00 Constipation, unspecified; N28.9 Disorder of kidney and ureter, unspecified; L65.9 Nonscarring hair loss, unspecified; E66.9 Obesity, unspecified
CPT/HCPCS: 80048; 80061

== ENCOUNTER 2022-01-26 14:08 | Outpatient (REF) | payer MEDICAID, SELFPAY ==
[2022-01-26 15:06] LABS: Anion Gap 9.4 mmol/L (3-11); BUN 19 mg/dL (7-18); CO2 25.6 mmol/L (21.0-32.0); CREATININE 1.4 mg/dL (0.55-1.02); Calcium 9.4 mg/dL (8.5-10.1); Chloride 103 mmol/L (98-107); Estimated GFR 48.17 (mL/min/1.73m2); Glucose 150 mg/dL (74-106); Potassium 4.3 mmol/L (3.5-5.1); Sodium 138 mmol/L (136-145)
== END 2022-01-26 14:09 | disposition home or self-care (01) ==
LOC: NCHCN 14:08
PROVIDERS: PCP Nurse Practitioner Family; Visit Provider Nurse Practitioner Family
DX: E11.65 Type 2 diabetes mellitus with hyperglycemia (principal); E66.9 Obesity, unspecified; K30 Functional dyspepsia; K59.00 Constipation, unspecified; N28.9 Disorder of kidney and ureter, unspecified; G64 Other disorders of peripheral nervous system
CPT/HCPCS: 80048

== ENCOUNTER 2022-04-24 13:33 | Outpatient (REF) | payer MEDICAID, SELFPAY ==
[2022-04-24 19:38] LABS: BUN 29 mg/dL (7-18); CREATININE 1.5 mg/dL (0.55-1.02); Calcium 9.5 mg/dL (8.5-10.1); Chloride 101 mmol/L (98-107); Estimated GFR 44.34 (mL/min/1.73m2); Glucose 106 mg/dL (74-106); Potassium 4.3 mmol/L (3.5-5.1); Sodium 133 mmol/L (136-145)
== END 2022-04-24 13:34 | disposition home or self-care (01) ==
LOC: NCHCN 13:33
PROVIDERS: PCP Nurse Practitioner Family; Visit Provider Nurse Practitioner Family
DX: N28.9 Disorder of kidney and ureter, unspecified (principal); E11.3293 Type 2 diabetes mellitus with mild nonproliferative diabetic retinopathy without macular edema, bilateral
CPT/HCPCS: 80048; 83036

== ENCOUNTER 2022-05-15 10:31 | Outpatient (REF) | payer MEDICAID, SELFPAY ==
[2022-05-15 15:56] LABS: Anion Gap 11.8 mmol/L (3-11); BUN 30 mg/dL (7-18); CO2 24.2 mmol/L (21.0-32.0); CREATININE 1.8 mg/dL (0.55-1.02); Calcium 9.9 mg/dL (8.5-10.1); Chloride 101 mmol/L (98-107); Estimated GFR 35.63 (mL/min/1.73m2); Glucose 102 mg/dL (74-106); Potassium 4.6 mmol/L (3.5-5.1); Sodium 137 mmol/L (136-145)
[2022-05-15 15:59] LABS: Hemoglobin A1C 5.8 % (<5.7)
== END 2022-05-15 10:32 | disposition home or self-care (01) ==
LOC: NCHCN 10:31
PROVIDERS: PCP Nurse Practitioner Family; Visit Provider Nurse Practitioner Family
DX: E11.65 Type 2 diabetes mellitus with hyperglycemia (principal); N18.32 Chronic kidney disease, stage 3b
CPT/HCPCS: 80048; 83036

== ENCOUNTER 2022-05-29 01:16 | Outpatient (CLI) | payer MEDICAID, SELFPAY ==
--- NOTE | 2022-05-29 | DI.US_ITS ---
Exam(s) US RENAL EXAM: US RENAL CLINICAL HISTORY: CKD N18.32. TECHNIQUE: Vigil scale, color and spectral Doppler were used. COMPARISON: US US PELVIS TRANSVAGINAL from 10/06/2018 FINDINGS: Renal size in cm: Right: 12.1. Left: 12.1. Echogenicity: Normal. Hydronephrosis: No. Cyst or mass: No. Nephrolithiasis: No. Other findings: There is a prominent right renal pelvis. Bladder:There is focal bladder wall thickening anterior up to 6 mm. The remainder of the urinary phill dder wall is within normal limits. Ureteral jets: Right: Visualized and unremarkable. Left: Visualized and unremarkable. Prevoid vol:191 cc Postvoid vol:0 cc Renal color flow: Symmetric and within normal limits. IMPRESSION: 1. Prominent right renal pelvis which may represent an extrarenal pelvis. Please correlate clinicall y for evidence to suggest hydronephrosis. 2. Focal bladder wall thickening anterior up to [address] urogram should be considered for further ev aluation. DATA REPOSITORY:
== END 2022-05-29 01:36 ==
LOC: DI 01:17
PROVIDERS: PCP Nurse Practitioner Family; Visit Provider Nurse Practitioner Family
DX: N18.32 Chronic kidney disease, stage 3b (principal); R93.41 Abnormal radiologic findings on diagnostic imaging of renal pelvis, ureter, or bladder
CPT/HCPCS: 76770

== ENCOUNTER 2022-06-18 07:15 | Day surgery (SDC) | payer MEDICAID, SELFPAY ==
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
[2022-06-18 07:06] VITALS: BMI 29.5
[2022-06-18 07:15] VITALS: BP 126/73; PULSE 66; RESP 18; TEMP 36.3; O2SAT 100
[2022-06-18] MEDS: Lactated Ringers 1,000 ML 80 ML IV (07:46)
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
--- NOTE | 2022-06-18 08:15 | DI.RAD_ITS ---
Exam(s) XR RETROGRADE IN OR EXAM: XR RETROGRADE IN OR CLINICAL HISTORY: BLADDER MASS/ RIGHT HYDRONEPHROSIS TECHNIQUE: 2D and realtime digital imaging was performed. CONTRAST MATERIAL: Refer to procedure report. COMPARISON: No exams were available for comparison FINDINGS: Fluoroscopy was provided for Dr. Willis during the performance of a retrograde evaluation of the katya l collecting system. Please refer to the procedure report for complete details. Ka,r=6.63 mGy IMPRESSION: RADIATION DOSE DELIVERED:
[2022-06-18] MEDS: ceFAZolin 2 GM/50 ML BAG IVPB (08:41)
[2022-06-18] MEDS: Lidocaine 2% Jelly 11 ML SYR (08:53)
[2022-06-18] MEDS: Omnipaque 300 MG/ML 50 ML BTL (09:02)
--- NOTE | 2022-06-18 09:10 | W.PM.DSUDISC ---
Date of service: 06/18/22 Time of Service: 09:11 Discharge Plan Disposition Condition: Stable Discharge Details Reason For Visit: cystoscopy Attending Provider: Selvin Willis Primary Care Provider: Chica Morris Home Meds and New Rx's Prescriptions: No Action acetylcysteine 600 mg capsule 600 mg PO .COMPLEX Patient Comments: 600 mg PO up to four capsules a day; Rx Instructions: 600 mg PO up to four capsules a day; erythromycin with ethanol 2 % gel 1 applic topical DAILY PRN [id number] 1.2-5 % combo pack,cream and gel 1 pkg topical DAILY PRN lidocaine-prilocaine 2.5-2.5 % cream 1 applic topical Q4H PRN Qty: 30 5RF gabapentin 300 mg capsule 300 mg PO BID valsartan 40 mg tablet 40 mg PO DAILY aspirin [St [place]o Aspirin] 81 mg tablet,chewable 81 mg PO DAILY insulin glargine [Lantus Solostar U-100 Insulin] 100 unit/mL (3 mL) insulin pen 25 unit subcut DAILY PRN Discharge Instructions Additional Instructions: followup 1 year for urinalysis I will be sending all of your results to your PCP - I expect they will refer you to a Fuel Verification Technician for your elevated serum creatinine Activity:: Activity as Tolerated Diet:: As Tolerated DS: Diagnosis Discharge Diagnosis (1) Bladder mass: Status: Acute (2) Hydronephrosis, right: Status: Acute
[2022-06-18 09:15] VITALS: BP 97/62; PULSE 79; RESP 16; TEMP 36.1; O2SAT 93
--- NOTE | 2022-06-18 09:37 | W.ANESPOSTOP ---
Postoperative Evaluation Date, Time and Location Date Performed: 06/18/22 Time Performed: 09:37 Patient Location: Day Surgery Unit Vital Signs Most Recent Imported Vital Signs: Most Recent Vital Signs Temp Pulse Resp BP Pulse Ox 36.1 C L 79 16 97/62 L 93 06/18/22 09:15 06/18/22 09:15 06/18/22 09:15 06/18/22 09:15 06/18/22 09:15 Pain Score Most Recent Pain Score: Most Recent Pain Score Pain Level 0 06/18/22 09:15 Assessment Mental Status: Awake (Alert & Oriented to Patient Baseline) Airway and Respiratory Function: Patent airway with normal (patient baseline) respiratory exam Cardiovascular Function: Hemodynamically Stable Hydration Status: Adequately Hydrated Nausea & Vomiting: No Nausea or Vomiting Pain: Pain is tolerable per patient Peripheral Nerve Block: Patient did not receive a nerve block
[2022-06-18 10:05] VITALS: BP 114/77; PULSE 58; RESP 16; TEMP 35.9; O2SAT 97
--- NOTE | 2022-06-18 10:28 | W.PM.OP ---
Date of service: 06/18/22 Time of Service: 10:28 Operative Note Operative Note DATE OF PROCEDURE: 06/18/22 PRE-OP DIAGNOSIS: abnormal renal ultrasound same PROCEDURE: Cystoscopy with bilateral retrograde pyelogram SURGEON: Selvin Willis ANESTHESIA TYPE: General:No Airway Refer to Anesthesia Record ESTIMATED BLOOD LOSS: 0 PATHOLOGY: none sent COMPLICATIONS: None Patient was transported to: same day Patient's condition: stable Implants: none Indications: This is a 41-year-old woman who has a history of diabetes. Her serum creatinine had been increasing, so she had a renal ultrasound done. The ultrasound raise the question of right-sided hydronephrosis. A CT urogram was recommended. There was also some bladder wall thickening on the renal ultrasound. The CT urogram was not done because of her serum creatinine. As an alternative, we elected to do a cystoscopy and retrograde pyelogram to rule out any obstructing lesions. She presents to have this surgical procedure done. Findings: 1. Normal bladder 2. No ureteral obstruction and prompt drainage of kidneys bilaterally Procedure Description: The patient was given preoperative antibiotics and brought to the operating room on 06/18/2022. After successful induction of general anesthesia, she was placed in the dorsal lithotomy position. Her genitalia was prepped and draped. 2% Xylocaine jelly was instilled into the urethra to act as a local anesthetic. A 22 [place] rigid cystoscope was passed through the urethra into the bladder. The bladder was inspected using both the 30 and 70 degree lens. The base of the bladder had descended slightly consistent with a mild cystocele. Both ureteral orifices appeared normal. No blood was seen coming from either side. The remainder of the bladder appeared smooth-walled with no papillary or nodular lesions. Each ureteral orifice was then cannulated with a 5 [place] access catheter. A retrograde film was then obtained by injecting Omnipaque through the access catheter under fluoroscopic guidance. No filling defects were seen in either ureter. Both kidneys drained promptly on 5-minute drainage films. Based on today's examination, I find no evidence of bladder mass and no evidence of a ureteral obstruction. With no surgical issues identified, I will recommend that the primary care provider consider a referral to nephrology for the patient's elevated serum creatinine.
== END 2022-06-18 10:20 | disposition home or self-care (01) ==
PROVIDERS: PCP Nurse Practitioner Family; Visit Provider Urology
PROC: (CPT 52005; principal; 2022-06-18 08:30)
DX: N32.89 Other specified disorders of bladder (principal); N13.30 Unspecified hydronephrosis; E11.22 Type 2 diabetes mellitus with diabetic chronic kidney disease; N18.9 Chronic kidney disease, unspecified
CPT/HCPCS: 52005; 76000; 81025; 74420; J0690; J1100; J2405; J2704; Q9967

== ENCOUNTER 2022-07-31 12:40 | Outpatient (REF) | payer MEDICAID, SELFPAY ==
[2022-07-31 15:04] LABS: Anion Gap 8.7 mmol/L (3-11); BUN 23 mg/dL (7-18); CO2 24.3 mmol/L (21.0-32.0); CREATININE 1.5 mg/dL (0.55-1.02); Calcium 9.4 mg/dL (8.5-10.1); Chloride 103 mmol/L (98-107); Estimated GFR 44.34 (mL/min/1.73m2); Glucose 139 mg/dL (74-106); Potassium 4.5 mmol/L (3.5-5.1); Sodium 136 mmol/L (136-145)
== END 2022-07-31 12:41 | disposition home or self-care (01) ==
LOC: NCHCN 12:40
PROVIDERS: PCP Nurse Practitioner Family; Visit Provider Nurse Practitioner Family
DX: E11.65 Type 2 diabetes mellitus with hyperglycemia (principal); N18.32 Chronic kidney disease, stage 3b; E55.9 Vitamin D deficiency, unspecified; K30 Functional dyspepsia
CPT/HCPCS: 80048

== ENCOUNTER 2022-09-07 11:37 | Outpatient (REF) | payer MEDICAID, SELFPAY ==
[2022-09-07 15:02] LABS: BUN 24 mg/dL (7-18); CREATININE 1.4 mg/dL (0.55-1.02); Calcium 9.4 mg/dL (8.5-10.1); Chloride 103 mmol/L (98-107); Estimated GFR 48.17 (mL/min/1.73m2); Glucose 115 mg/dL (74-106); Potassium 4.7 mmol/L (3.5-5.1); Sodium 138 mmol/L (136-145)
== END 2022-09-07 11:38 | disposition home or self-care (01) ==
LOC: NCHCN 11:37
PROVIDERS: PCP Nurse Practitioner Family; Visit Provider Nurse Practitioner Family
DX: N18.32 Chronic kidney disease, stage 3b (principal)
CPT/HCPCS: 80048

== ENCOUNTER 2022-11-16 02:42 | Outpatient (CLI) | payer MEDICAID, SELFPAY ==
[2022-11-16 12:14] LABS: Anion Gap 9.2 mmol/L (3-11); BUN 20 mg/dL (7-18); CO2 26.8 mmol/L (21.0-32.0); CREATININE 1.5 mg/dL (0.55-1.02); Calcium 9.6 mg/dL (8.5-10.1); Chloride 102 mmol/L (98-107); Estimated GFR 44.34 (mL/min/1.73m2); Glucose 100 mg/dL (74-106); Potassium 4.2 mmol/L (3.5-5.1); Sodium 138 mmol/L (136-145)
== END 2022-11-16 02:43 | disposition home or self-care (01) ==
LOC: LBO 02:42
PROVIDERS: PCP Nurse Practitioner Family; Visit Provider Internal Medicine Nephrology
DX: N18.32 Chronic kidney disease, stage 3b (principal)
CPT/HCPCS: 36415; 80048

== ENCOUNTER 2023-03-05 03:40 | Outpatient (CLI) | payer MEDICAID, SELFPAY ==
[2023-03-05 08:50] LABS: Abs Immature Grans 0.03 10^3/uL (0.0-0.06); Absolute Basophil Count 0.13 10^3/uL (0.0-0.2); Absolute Eosinophil Count 0.41 10^3/uL (0.0-0.7); Absolute Monocyte Count 0.42 10^3/uL (0.1-0.8); Absolute Neutrophil Count 7.08 10^3/uL (1.2-6.7); Basophils % 1.2; Eosinophils % 3.9; HCT 41.3 % (36.0-46.0); HGB 13.9 g/dL (11.2-15.7); Immature Grans % 0.3; Lymphocytes % 23.7; MCH 30.6 pg (27.0-33.0); MCHC 33.7 % (32.0-36.0); MCV 91 fL (80-95); MPV 10.4 fL (8.0-11.0); Neutrophils % 66.9; Platelet Count 269 10^3/uL (130-400); RBC 4.54 10^6/uL (3.93-5.22); RDW 12.7 % (11.7-14.6); RDW-SD 42.4 fL; WBC 10.57 10^3/uL (4.4-10.8)
[2023-03-05 08:56] LABS: Anion Gap 11.5 mmol/L (3-11); BUN 27 mg/dL (7-18); CO2 26.5 mmol/L (21.0-32.0); CREATININE 2.4 mg/dL (0.55-1.02); Chloride 101 mmol/L (98-107); Estimated GFR 25.07 (mL/min/1.73m2); Glucose 90 mg/dL (74-106); Potassium 4.6 mmol/L (3.5-5.1); Sodium 139 mmol/L (136-145)
[2023-03-05 08:57] LABS: Bilirubin Negative (Negative); Blood Trace-intact (Negative); Clarity Clear (Clear); Glucose Negative (Negative); Ketones Trace mg/dL (Negative); Leukocyte Esterase Negative (Negative); Nitrite Negative (Negative); Urobilinogen 0.2 mg/dL (Up to 0.2); pH 5.5 (5-8)
[2023-03-05 09:42] LABS: COMMENT (LAB VIEW ONLY) 142.87 mg/dL; Microalb ug/mg Crea 12.7 ug/mg Cr
== END 2023-03-05 03:41 | disposition home or self-care (01) ==
LOC: LBO 03:40
PROVIDERS: PCP Nurse Practitioner Family; Visit Provider Internal Medicine Nephrology
DX: N18.32 Chronic kidney disease, stage 3b (principal); D72.10 Eosinophilia, unspecified
CPT/HCPCS: 36415; 80048; 82043; 82570; 81003; 85025

== ENCOUNTER → 2023-03-12 01:05 | Outpatient (CLI) | payer MEDICAID, SELFPAY ==
--- NOTE | 2023-03-12 | DI.US_ITS ---
Exam(s) US RENAL EXAM: US RENAL CLINICAL HISTORY: Stage 3b chronic kidney disease N18.32. TECHNIQUE: Vigil scale, color and spectral Doppler were used. COMPARISON: US US PELVIS TRANSVAGINAL from 10/06/2018 US US RENAL from 05/29/2022 XA XR RETROGRADE IN OR from 06/18/2022 FINDINGS: Renal size in cm: Right: 11.1 left: 11.2 Echogenicity: Normal Hydronephrosis: Mild right hydronephrosis. Cyst or mass: No Nephrolithiasis: No Bladder:Normal. Both ureteral jets were visualized over the left was visualized much more frequent ly. Prevoid vol:337 cc Postvoid vol: 0 cc IMPRESSION: Mild right hydronephrosis. DATA REPOSITORY:
== END ==
PROVIDERS: PCP Nurse Practitioner Family; Visit Provider Internal Medicine Nephrology
DX: N13.0 Hydronephrosis with ureteropelvic junction obstruction (principal); N18.32 Chronic kidney disease, stage 3b
CPT/HCPCS: 76770

== ENCOUNTER 2023-04-10 04:47 | Outpatient (CLI) | payer MEDICAID, SELFPAY ==
[2023-04-10 13:29] LABS: Abs Immature Grans 0.03 10^3/uL (0.0-0.06); Absolute Basophil Count 0.13 10^3/uL (0.0-0.2); Absolute Eosinophil Count 0.46 10^3/uL (0.0-0.7); Absolute Lymphocyte Count 2.73 10^3/uL (1.2-3.4); Absolute Monocyte Count 0.36 10^3/uL (0.1-0.8); Absolute Neutrophil Count 5.64 10^3/uL (1.2-6.7); Basophils % 1.4; Eosinophils % 4.9; HCT 37.6 % (36.0-46.0); HGB 12.5 g/dL (11.2-15.7); Immature Grans % 0.3; Lymphocytes % 29.2; MCHC 33.2 % (32.0-36.0); MCV 90 fL (80-95); MPV 9.8 fL (8.0-11.0); Monocytes % 3.9; Neutrophils % 60.3; Platelet Count 281 10^3/uL (130-400); RBC 4.16 10^6/uL (3.93-5.22); WBC 9.35 10^3/uL (4.4-10.8)
[2023-04-10 13:31] LABS: Bilirubin Negative (Negative); Blood Negative (Negative); Clarity Clear (Clear); Glucose Negative (Negative); Ketones Negative (Negative); Leukocyte Esterase Negative (Negative); Nitrite Negative (Negative); Specific Gravity 1.015 (1.005-1.025); Urobilinogen 0.2 mg/dL (Up to 0.2); pH 5.5 (5-8)
[2023-04-10 13:50] LABS: Anion Gap 9.6 mmol/L (3-11); BUN 30 mg/dL (7-18); CO2 26.4 mmol/L (21.0-32.0); CREATININE 2.2 mg/dL (0.55-1.02); Calcium 9.7 mg/dL (8.5-10.1); Chloride 100 mmol/L (98-107); Estimated GFR 27.83 (mL/min/1.73m2); Glucose 80 mg/dL (74-106); Potassium 4.5 mmol/L (3.5-5.1); Sodium 136 mmol/L (136-145)
[2023-04-10 13:55] LABS: COMMENT (LAB VIEW ONLY) 70.21 mg/dL; Microalb ug/mg Crea 25.5 ug/mg Cr
== END 2023-04-10 04:48 | disposition home or self-care (01) ==
LOC: LBO 04:47
PROVIDERS: PCP Nurse Practitioner Family; Visit Provider Internal Medicine Nephrology
DX: N18.32 Chronic kidney disease, stage 3b (principal); D72.10 Eosinophilia, unspecified
CPT/HCPCS: 36415; 80048; 81003; 82043; 82570; 85025

== ENCOUNTER 2023-05-07 02:23 | Outpatient (CLI) | payer MEDICAID, SELFPAY ==
[2023-05-07 11:41] LABS: Abs Immature Grans 0.04 10^3/uL (0.0-0.06); Absolute Basophil Count 0.11 10^3/uL (0.0-0.2); Absolute Eosinophil Count 0.45 10^3/uL (0.0-0.7); Absolute Lymphocyte Count 2.44 10^3/uL (1.2-3.4); Absolute Monocyte Count 0.36 10^3/uL (0.1-0.8); Absolute Neutrophil Count 5.55 10^3/uL (1.2-6.7); Basophils % 1.2; HGB 12.3 g/dL (11.2-15.7); Immature Grans % 0.4; Lymphocytes % 27.3; MCH 30.4 pg (27.0-33.0); MCHC 33.2 % (32.0-36.0); MCV 91 fL (80-95); MPV 9.9 fL (8.0-11.0); Neutrophils % 62.1; Platelet Count 271 10^3/uL (130-400); RBC 4.05 10^6/uL (3.93-5.22); RDW 13.1 % (11.7-14.6); RDW-SD 44.3 fL; WBC 8.95 10^3/uL (4.4-10.8)
[2023-05-07 11:58] LABS: ALT 24 U/L (14-59); AST 39 U/L (15-37); Albumin 3.9 g/dL (3.4-5.0); Alkaline Phosphatase 62 U/L (46-116); Anion Gap 9.5 mmol/L (3-11); BUN 23 mg/dL (7-18); Bilirubin, Total 0.4 mg/dL (0.2-1.0); CO2 28.5 mmol/L (21.0-32.0); CREATININE 2.1 mg/dL (0.55-1.02); Calcium 9.9 mg/dL (8.5-10.1); Chloride 102 mmol/L (98-107); Estimated GFR 29.43 (mL/min/1.73m2); Glucose 81 mg/dL (74-106); Magnesium 2.2 mg/dL (1.8-2.4); Potassium 4.4 mmol/L (3.5-5.1); Sodium 140 mmol/L (136-145); Total Protein 7.6 g/dL (6.4-8.2); Uric Acid 5.6 mg/dL (2.6-6.0)
[2023-05-07 18:08] LABS: Parathyroid Hormone,Intact 50 pg/mL (19-88)
== END 2023-05-07 02:24 | disposition home or self-care (01) ==
LOC: LBO 02:24
PROVIDERS: PCP Nurse Practitioner Family; Visit Provider Internal Medicine Nephrology
DX: N18.32 Chronic kidney disease, stage 3b (principal); E21.3 Hyperparathyroidism, unspecified
CPT/HCPCS: 36415; 80053; 82306; 83735; 83970; 84100; 84550; 85025

== ENCOUNTER 2023-06-04 03:23 | Outpatient (CLI) | payer MEDICAID, SELFPAY ==
[2023-06-04 13:14] LABS: Abs Immature Grans 0.04 10^3/uL (0.0-0.06); Absolute Basophil Count 0.13 10^3/uL (0.0-0.2); Absolute Eosinophil Count 0.47 10^3/uL (0.0-0.7); Absolute Lymphocyte Count 3.03 10^3/uL (1.2-3.4); Basophils % 1.1; Eosinophils % 3.9; Immature Grans % 0.3; Lymphocytes % 25.2; MCH 30.5 pg (27.0-33.0); MCHC 33.3 % (32.0-36.0); MCV 92 fL (80-95); MPV 9.5 fL (8.0-11.0); Monocytes % 3.7; Neutrophils % 65.8; Platelet Count 275 10^3/uL (130-400); RBC 4.26 10^6/uL (3.93-5.22); RDW 12.9 % (11.7-14.6); RDW-SD 43.7 fL; WBC 12.04 10^3/uL (4.4-10.8)
[2023-06-04 13:15] LABS: Absolute Monocyte Count 0.45 10^3/uL (0.1-0.8); Absolute Neutrophil Count 7.92 10^3/uL (1.2-6.7)
[2023-06-04 13:16] LABS: Bilirubin Negative (Negative); Blood Negative (Negative); Clarity Clear (Clear); Glucose Negative (Negative); Ketones Negative (Negative); Leukocyte Esterase Negative (Negative); Nitrite Negative (Negative); Specific Gravity 1.015 (1.005-1.025); Urobilinogen 0.2 mg/dL (Up to 0.2)
[2023-06-04 13:44] LABS: COMMENT (LAB VIEW ONLY) 77.68 mg/dL; PROTEIN 17.1 mg/dL; Prot/Crea Ur Ratio 0.22
[2023-06-04 13:48] LABS: COMMENT (LAB VIEW ONLY) 76.72 mg/dL; Microalb ug/mg Crea 37.5 ug/mg Cr
[2023-06-04 13:53] LABS: ALT 22 U/L (14-59); AST 28 U/L (15-37); Albumin 4.1 g/dL (3.4-5.0); Alkaline Phosphatase 72 U/L (46-116); Anion Gap 11.2 mmol/L (3-11); BUN 30 mg/dL (7-18); Bilirubin, Total 0.4 mg/dL (0.2-1.0); CO2 26.8 mmol/L (21.0-32.0); CREATININE 2.3 mg/dL (0.55-1.02); Calcium 9.5 mg/dL (8.5-10.1); Chloride 101 mmol/L (98-107); Estimated GFR 26.39 (mL/min/1.73m2); Glucose 76 mg/dL (74-106); Magnesium 1.9 mg/dL (1.8-2.4); Potassium 4.2 mmol/L (3.5-5.1); Sodium 139 mmol/L (136-145)
[2023-06-04 22:25] LABS: Parathyroid Hormone,Intact 54 pg/mL (19-88)
== END 2023-06-04 03:24 | disposition home or self-care (01) ==
LOC: LBO 03:24
PROVIDERS: PCP Nurse Practitioner Family; Visit Provider Internal Medicine Nephrology
DX: N18.4 Chronic kidney disease, stage 4 (severe) (principal)
CPT/HCPCS: 36415; 80053; 81003; 82043; 82565; 82570; 83735; 83970; 84100; 84156; 85025

== ENCOUNTER → 2023-06-12 02:59 | Outpatient (CLI) | payer MEDICAID, SELFPAY ==
--- NOTE | 2023-06-12 08:30 | DI.NM_ITS ---
Exam(s) NM MAG 3 RENOGRAM W LASIX CLINICAL HISTORY: ? obstruction,CKD,HYDRONEPHROSIS,N13.30,N18.9. COMPARISON: XA XR RETROGRADE IN OR from 06/18/2022 US US RENAL from 03/12/2023 EXAMINATION: Dose: 9.4 mCi Tc-99m MAG3 Images: Immediately for 1 minute followed by dynamic for 45 minutes. Twenty-fourmg Lasix was administ ered after peak uptake in the renal cortex at approximately 12 min. FINDINGS: Time to peak: Right: 5 min (< 5 min normal) Left: 5 min (< 5 min normal) Curve Appearance: Right: T1/2 (Lasix to half-Lasix) min Left: T1/2 (Lasix to half-Lasix) min The time activity curve reveals no delay in the washout of either collecting system. Split renal function: Right: 47 % Left: 53 % IMPRESSION: 1. Mildly dilated, non-obstructed right collecting system.
[2023-06-12] MEDS: Furosemide 40 MG/4 ML VIAL 24 MG IVP (14:47)
== END ==
PROVIDERS: PCP Nurse Practitioner Family; Visit Provider Urology
DX: N18.9 Chronic kidney disease, unspecified (principal); N13.30 Unspecified hydronephrosis
CPT/HCPCS: 78708; A9540; J1940

== ENCOUNTER 2024-02-28 13:30 | Emergency (ER) | payer MEDICAID, SELFPAY ==
[2024-02-28 13:35] VITALS: BP 123/76; PULSE 90; RESP 18; TEMP 36.7; O2SAT 97
--- NOTE | 2024-02-28 14:15 | DI.RAD_ITS ---
Exam(s) XR CHEST 2V PA LATERAL EXAM: XR CHEST 2V PA LATERAL CLINICAL HISTORY: pneumonia TECHNIQUE: 2D digital imaging was performed. Two views. COMPARISON: CR CHEST 2 VIEWS PA,LAT from 05/29/2016 FINDINGS: HEART: Normal size. Aorta: Not dilated. PULMONARY VASCULATURE: Normal. MEDIASTINUM: Unremarkable. LUNGS: Clear. PLEURAL SPACE: No pleural effusion or pneumothorax. BONE:Unremarkable for age. SOFT TISSUES: Unremarkable. IMPRESSION: No acute abnormality. DATA REPOSITORY: RADIATION DOSE DELIVERED:
--- NOTE | 2024-02-28 14:15 | RT.EKG_ITS ---
APPROVED REPORT Exam: Resting ECG Reason for Exam: shortness of breath Patient Location: E HR:86 bpm ECG Measurements Heart Rate 86 AXIS LA 148 P 63 QRSd 85 QRS 32 QT 340 T 60 QTc 408 Conclusion Sinus rhythm 86 normal axis no stemi
[2024-02-28] MEDS: Albuterol/Ipratropium 3 ML UPD VIAL 6 ML UPD (14:51)
[2024-02-28] MEDS: predniSONE 20 MG TAB 40 MG PO (14:51)
[2024-02-28 15:03] LABS: Abs Immature Grans 0.08 10^3/uL (0.0-0.06); Absolute Basophil Count 0.08 10^3/uL (0.0-0.2); Absolute Eosinophil Count 0.13 10^3/uL (0.0-0.7); Absolute Lymphocyte Count 1.52 10^3/uL (1.2-3.4); Absolute Monocyte Count 0.61 10^3/uL (0.1-0.8); Absolute Neutrophil Count 11.51 10^3/uL (1.2-6.7); Basophils % 0.6 %; Eosinophils % 0.9 %; HCT 31.9 % (36.0-46.0); HGB 11.6 g/dL (11.2-15.7); Immature Grans % 0.6 %; Lymphocytes % 10.9 %; MCH 35.6 pg (27.0-33.0); MCHC 36.4 % (32.0-36.0); MCV 98 fL (80-95); MPV 8.8 fL (8.0-11.0); Monocytes % 4.4 %; Neutrophils % 82.6 %; Platelet Count 279 10^3/uL (130-400); RBC 3.26 10^6/uL (3.93-5.22); RDW 14.5 % (11.7-14.6); RDW-SD 44.4 fL; WBC 13.94 10^3/uL (4.4-10.8)
[2024-02-28 15:36] LABS: ALT 21 U/L (14-59); AST 30 U/L (15-37); Albumin 3.9 g/dL (3.4-5.0); Alkaline Phosphatase 97 U/L (46-116); Anion Gap 9.9 mmol/L (3-11); BUN 36 mg/dL (7-18); Bilirubin, Total 0.55 mg/dL (0.2-1.0); CO2 25.1 mmol/L (21.0-32.0); CREATININE 2.2 mg/dL (0.55-1.02); Calcium 9.5 mg/dL (8.5-10.1); Chloride 102 mmol/L (98-107); Estimated GFR 27.66 (mL/min/1.73m2); Glucose 113 mg/dL (74-106); Potassium 4.7 mmol/L (3.5-5.1); Sodium 137 mmol/L (136-145); Total Protein 8.5 g/dL (6.4-8.2)
[2024-02-28 15:40] LABS: COVID-19 PCR Negative (Negative); Influenza A PCR Negative (Negative); Influenza B PCR Negative (Negative); RSV PCR Negative (Negative); Source NASOPHARYNX
[2024-02-28 15:45] VITALS: O2SAT 96
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
[2024-02-28] MEDS: Doxycycline Hyclate 100 MG, 2 CAPS/BTL PO (16:08)
[2024-02-28] MEDS: Albuterol HFA 8 GM 60 PUFF INH IH (16:08)
[2024-02-28 16:09] VITALS: BP 123/76; PULSE 90; RESP 18; TEMP 36.7; O2SAT 96
[2024-02-28] MEDS: Inhaler, Assist Device 1 EACH MC (16:09)
[2024-02-28 16:10] VITALS: BP 120/56; PULSE 107; RESP 14; O2SAT 96
== END 2024-02-28 16:14 | disposition home or self-care (01) ==
PROVIDERS: Emergency Provider Physician Assistant; PCP Nurse Practitioner Family
DX: J40 Bronchitis, not specified as acute or chronic (principal); E11.22 Type 2 diabetes mellitus with diabetic chronic kidney disease; I12.9 Hypertensive chronic kidney disease with stage 1 through stage 4 chronic kidney disease, or unspecified chronic kidney disease; N18.4 Chronic kidney disease, stage 4 (severe); F17.210 Nicotine dependence, cigarettes, uncomplicated; Z79.899 Other long term (current) drug therapy
CPT/HCPCS: 36415; 80053; 87637; 93005; 94640; 99285; 71046; 85025; 93010; 99284; J7512; J7620

== ENCOUNTER 2024-08-05 01:39 | Outpatient (CLI) | payer MEDICAID, SELFPAY ==
[2024-08-05 09:58] LABS: Abs Immature Grans 0.03 10^3/uL (0.0-0.06); Absolute Basophil Count 0.12 10^3/uL (0.0-0.2); Absolute Eosinophil Count 0.47 10^3/uL (0.0-0.7); Absolute Lymphocyte Count 2.49 10^3/uL (1.2-3.4); Absolute Monocyte Count 0.34 10^3/uL (0.1-0.8); Absolute Neutrophil Count 4.72 10^3/uL (1.2-6.7); Basophils % 1.5 %; Eosinophils % 5.8 %; HCT 43.1 % (36.0-46.0); HGB 14.4 g/dL (11.2-15.7); Immature Grans % 0.4 %; Lymphocytes % 30.5 %; MCH 30.6 pg (27.0-33.0); MCHC 33.4 % (32.0-36.0); MCV 92 fL (80-95); MPV 9.6 fL (8.0-11.0); Monocytes % 4.2 %; Neutrophils % 57.6 %; Platelet Count 256 10^3/uL (130-400); RBC 4.71 10^6/uL (3.93-5.22); RDW-SD 44.1 fL; WBC 8.17 10^3/uL (4.4-10.8)
[2024-08-05 10:21] LABS: Bilirubin Negative (Negative); Blood Negative (Negative); Clarity Clear (Clear); Glucose Negative (Negative); Ketones Negative (Negative); Leukocyte Esterase Negative (Negative); Nitrite Negative (Negative); Specific Gravity 1.015 (1.005-1.025); Urobilinogen 0.2 mg/dL (Up to 0.2)
[2024-08-05 10:59] LABS: ALT 31 U/L (14-59); AST 37 U/L (15-37); Albumin 4.4 g/dL (3.4-5.0); Alkaline Phosphatase 88 U/L (46-116); Anion Gap 7.1 mmol/L (3-11); BUN 34 mg/dL (7-18); Bilirubin, Total 0.4 mg/dL (0.2-1.0); CO2 29.9 mmol/L (21.0-32.0); CREATININE 1.9 mg/dL (0.55-1.02); Chloride 102 mmol/L (98-107); Estimated GFR 32.98 (mL/min/1.73m2); Glucose 89 mg/dL (74-106); Potassium 5.1 mmol/L (3.5-5.1); Sodium 139 mmol/L (136-145); Total Protein 8.5 g/dL (6.4-8.2)
[2024-08-05 11:02] LABS: COMMENT (LAB VIEW ONLY) 80.04 mg/dL; Microalb ug/mg Crea 13.4 ug/mg Cr
[2024-08-05 12:41] LABS: PHOSPHORUS 4.5 mg/dL (2.6-4.7); Uric Acid 5.4 mg/dL (2.6-6.0)
[2024-08-05 18:57] LABS: Parathyroid Hormone,Intact 64 pg/mL (19-88)
== END 2024-08-05 01:40 | disposition home or self-care (01) ==
LOC: LBO 01:39
PROVIDERS: PCP Nurse Practitioner Family; Visit Provider Internal Medicine Nephrology
DX: N18.32 Chronic kidney disease, stage 3b (principal)
CPT/HCPCS: 36415; 80053; 81003; 82043; 82570; 83970; 84100; 84550; 85025

== ENCOUNTER 2025-02-01 10:57 | Outpatient (REF) | payer MEDICAID, SELFPAY ==
[2025-02-01 15:27] LABS: Abs Immature Grans 0.02 10^3/uL (0.0-0.06); HCT 36.4 % (36.0-46.0); HGB 12.2 g/dL (11.2-15.7); Immature Grans % 0.2 %; MCH 31.4 pg (27.0-33.0); MCHC 33.5 % (32.0-36.0); MCV 94 fL (80-95); MPV 10.4 fL (8.0-11.0); Platelet Count 268 10^3/uL (130-400); RBC 3.89 10^6/uL (3.93-5.22); RDW 13.1 % (11.7-14.6); RDW-SD 45.1 fL; WBC 9.56 10^3/uL (4.4-10.8)
[2025-02-01 16:33] LABS: ALT 55 U/L (14-59); AST 91 U/L (15-37); Albumin 4.0 g/dL (3.4-5.0); Alkaline Phosphatase 72 U/L (46-116); Anion Gap 10.3 mmol/L (3-11); BUN 23 mg/dL (7-18); Bilirubin, Total 0.3 mg/dL (0.2-1.0); CO2 25.7 mmol/L (21.0-32.0); Calcium 9.1 mg/dL (8.5-10.1); Chloride 102 mmol/L (98-107); Estimated GFR 37.45 (mL/min/1.73m2); Glucose 75 mg/dL (74-106); Magnesium 1.9 mg/dL (1.8-2.4); Potassium 4.8 mmol/L (3.5-5.1); Sodium 138 mmol/L (136-145); Total Protein 7.6 g/dL (6.4-8.2); Vitamin D 25 Total 23 ng/mL (30-100)
== END 2025-02-01 10:58 | disposition home or self-care (01) ==
LOC: NCHCN 10:57
PROVIDERS: PCP Nurse Practitioner Family; Visit Provider Nurse Practitioner Family
DX: N18.4 Chronic kidney disease, stage 4 (severe) (principal); E21.3 Hyperparathyroidism, unspecified; N13.30 Unspecified hydronephrosis
CPT/HCPCS: 80053; 82306; 83735; 85025

== ENCOUNTER 2025-02-04 13:35 | Outpatient (REF) | payer MEDICAID, SELFPAY ==
[2025-02-04 17:33] LABS: Glucose Negative (Negative)
[2025-02-04 17:55] LABS: Microalb ug/mg Crea 26.4 ug/mg Cr
== END 2025-02-04 13:36 | disposition home or self-care (01) ==
LOC: LBN 13:35
PROVIDERS: PCP Nurse Practitioner Family; Visit Provider Internal Medicine Nephrology
DX: N18.32 Chronic kidney disease, stage 3b (principal); E11.22 Type 2 diabetes mellitus with diabetic chronic kidney disease
CPT/HCPCS: 81003; 82043; 82570